=== PATIENT | male | born 1980 | race Hispanic/Latino ===

== ENCOUNTER 2019-12-13 11:02 | Observation (INO) | payer BC ==
[2019-12-13] MEDS ORDERED: Nitroglycerin 2% Ointment 1 INCH/1 GM Packet ONE (12:39)
[2019-12-13] MEDS ORDERED: Aspirin Chewable 81 MG TAB ONE (12:39)
[2019-12-13 12:44] LABS: #Basophils 0.1 thou/uL (0.0-0.2); #Eosinphils 0.1 thou/uL (0.0-0.7); #Lymphocytes 2.7 thou/uL (1.20-3.40); #Monocytes 1.1 thou/uL (0.11-0.59); #Neutrophils 5.9 thou/uL (1.40-6.50); %Basophils 0.9 % (0.0-1.0); %Eosinophils 0.6 % (0.0-10.0); %Lymphocytes 27.3 % (21.0-51.0); %Monocytes 10.9 % (0.0-10.0); %Neutrophils 60.4 % (42.0-75.0); Hemoglobin 16.1 g/dL (14.0-18.0); Mean Corpuscular HGB CONC 34.9 g/dL (32.0-36.0); Mean Corpuscular Hemoglobin 30.9 pg (27.0-31.0); Mean Corpuscular Volume 88.6 fL (78.0-98.0); Mean Platelet Volume 7.7 fL (7.4-10.4); Platelet Count 195 thou/uL (130-400); RBC Distribution Width 11.9 % (11.5-14.5); Red Blood Cell (RBC) Count 5.19 mill/uL (4.70-6.10); White Blood Cell (WBC) Count 9.7 thou/uL (4.8-10.8)
--- NOTE | 2019-12-13 12:59 | RAD ---
EXAM: Single view of the chest HISTORY: Shortness of breath COMPARISON: None FINDINGS: Single view of the chest shows a normal sized cardiomediastinal silhouette. There is no chris dence of consolidation, mass, or pleural effusion. The bones are unremarkable. IMPRESSION: No evidence of acute cardiopulmonary disease
[2019-12-13 13:05] LABS: ALT (SGPT) 63 U/L (8-55); AST (SGOT) 34 U/L (5-34); Albumin 4.4 g/dL (3.5-5.0); Alkaline Phosphatase 62 U/L (40-110); Anion Gap 11 mmol/L (10-20); BUN (Urea Nitrogen) 19 mg/dL (8.9-20.6); Bilirubin, Total 0.2 mg/dL (0.2-1.2); Calc. Creatinine Clearance 0 mL/min (70-130); Calcium 9.4 mg/dL (7.8-10.44); Carbon Dioxide 23 mmol/L (22-29); Chloride 110 mmol/L (98-107); Estimated GFR-MDRD Greater than 90; Globulin 3.1 g/dL (2.4-3.5); Glucose 117 mg/dL (70-105); Potassium 3.9 mmol/L (3.5-5.1); Protein, Total 7.5 g/dL (6.0-8.3); Sodium 140 mmol/L (136-145)
[2019-12-13 17:00] VITALS: BMI 34.3
[2019-12-13] MEDS ORDERED: Ondansetron ODT 4 MG TAB SL PRN (17:18)
[2019-12-13] MEDS ORDERED: Ondansetron PF 4 MG/2 ML Vial IVP PRN ×2 (17:18→18:17)
[2019-12-13] MEDS ORDERED: Acetaminophen 325 MG TAB PO PRN (17:18)
[2019-12-13 17:24] LABS: Troponin I 0.024 ng/mL (< 0.028)
[2019-12-13] MEDS ORDERED: hydrALAZINE 20 MG/ML VIAL SLOW IVP PRN (18:17)
[2019-12-13] MEDS ORDERED: Ondansetron ODT 4 MG TAB PO PRN (18:17)
[2019-12-13] MEDS ORDERED: Acetaminophen 500 MG TAB PO PRN (18:17)
[2019-12-13] MEDS ORDERED: Nitroglycerin 0.4 MG TAB (25 Tab Bottle) PO PRN (18:17)
[2019-12-13 19:56] LABS: Troponin I 0.026 ng/mL (< 0.028)
[2019-12-13] MEDS: Famotidine 20 MG TAB PO SCH (21:04)
--- NOTE | 2019-12-14 00:38 | HP ---
PRIMARY CARE PROVIDER: Lucas Huggins MD CHIEF COMPLAINT: Chest pain. HISTORY OF PRESENT ILLNESS: This is a 39-year-old male, who presents to [facility] Emergency Department complaining of 1 to 2 day history of central chest pressure and pain with some radiation to the left upper extremity. 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 The patient rested and eventually the pain and tightness subsided. 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 The patient took deep breaths and changed his position without relief of symptoms. The patient became concerned, seeking medical attention in the emergency room. The patient does admit to history of palpitations in the past, wearing a Holter monitor for approximately 30 days without specific findings. The patient denied any recent trauma injury, increased activity level, cough, congestion, fever, or family members with similar symptoms. The patient denied any recent surgical interventions or new medication exposure. The patient does admit to history of gastroesophageal reflux, taking intermittent Nexium. In the emergency room, the patient underwent general evaluation including chest imaging showing no acute infiltrate. Troponin I was negative x2. However, EKG did show ST-T wave changes in the precordial leads. The patient received transdermal nitroglycerin in addition to aspirin 324mg and 1 L normal saline. The patient was referred to the Hospitalist Service for evaluation. PAST MEDICAL HISTORY: 1. Palpitations without specific diagnosis. 2. Gastroesophageal reflux treated with Nexium. PAST SURGICAL HISTORY: Status post vasectomy. CURRENT MEDICATIONS: Reviewed and negative. ALLERGIES: NO KNOWN DRUG ALLERGIES. FAMILY HISTORY: No inheritable diseases per patient report. SOCIAL HISTORY: The patient is . Resides in the [place], [place] area. Works as a rancher. Smokes occasionally with occasional alcohol use. No illicit drug use. Functional of all activities of daily living. REVIEW OF SYSTEMS: CONSTITUTIONAL: Negative for weight loss or gain, ability to conduct usual activities. SKIN: Negative for rash, itching. EYES: Negative for double vision, pain. ENT/MOUTH: Negative for nose bleeding, neck stiffness, pain, tenderness. CARDIOVASCULAR: Negative for palpitations, dyspnea on exertion, orthopnea. RESPIRATORY: Negative for shortness of breath, wheezing, cough, hemoptysis, fever or night sweats. GASTROINTESTINAL: Negative for poor appetite, abdominal pain, heartburn, nausea , vomiting, constipation, or diarrhea. GENITOURINARY: Negative for urgency, frequency, dysuria, nocturia. MUSCULOSKELETAL: Negative for pain, swelling. NEUROLOGIC/PSYCHIATRIC: Negative for anxiety, depression. ALLERGY/IMMUNOLOGIC: Negative for skin rash, bleeding tendency. Otherwise negative except as stated per HPI. PHYSICAL EXAMINATION: VITAL SIGNS: On admission, blood pressure 121/63, pulse 72, respiratory rate 16 , temperature 97.9 degrees Fahrenheit, O2 saturation 98% on room air. GENERAL APPEARANCE: This is a 39-year-old male, alert and oriented x3, pleasant , conversant, in no acute distress. HEENT: Pupils are equal, round, reactive to light and accommodation. Extraocular muscles are intact. No scleral icterus. No conjunctival injection. Nares patent. OP is clear. Teeth in good repair. NECK: Supple. No cervical adenopathy. No thyromegaly. No carotid bruits. No JVD appreciated. Cervical spine with full active and passive range of motion. No meningeal signs noted. CHEST: Lungs are clear to auscultation bilaterally. CARDIOVASCULAR: S1, S2 without noted murmur, rub, or gallop. ABDOMEN: Rounded, soft, nontender, and nondistended. Bowel sounds are positive in all 4 quadrants. There is no hepatosplenomegaly. No abdominal bruits. No rebound or guarding appreciated. EXTREMITIES: Warm and dry with fair turgor. No clubbing, cyanosis, or asymmetric edema appreciated. Pulses palpable distally at the dorsalis pedis, posterior tibial, and popliteal arteries bilaterally. Capillary refill less than 2 seconds. NEUROLOGIC: Cranial nerves 2 through 12 are grossly intact. No focal or lateralizing signs appreciated. PERTINENT LABORATORY AND X-RAY FINDINGS: Complete metabolic profile within normal limits. Troponin I negative x2. CBC within normal limits. Portable chest x- ray dated 12/13/2019, showed no acute cardiopulmonary process. EKG dated 2019 by my interpretation shows T-wave inversion in the precordial leads involving V3 through V5. ASSESSMENT AND PLAN: 1. Chest pain. The patient will be observed on the telemetry unit. We will proceed with exercise Cardiolite stress testing in the a.m. Complete troponin I evaluation. Check fasting lipid profile in the a.m. Continue aspirin 325 mg daily. 2. Tobacco use. We will offer smoking cessation resources prior to discharge. 3. Gastroesophageal reflux disease. Continue Pepcid 20 mg p.o. b.i.d. 4. Prophylaxis. SCDs while in bed. Pepcid 20 mg p.o. b.i.d. 5. Code status is full. Surrogate medical decision maker is the patient's spouse. Job ID: [id number] MTDD
[2019-12-14] MEDS ORDERED: Aspirin 325 mg Enteric Coated Tablet PO SCH (09:00)
--- NOTE | 2019-12-14 10:34 | NM ---
EXAM: CARDIAC SPECT HISTORY: Chest pain TECHNIQUE: A myocardial perfusion scan was performed using the single isotope 1 day protocol with ellis hnetium 99m sestamibi. [10 mCi] was injected intravenously for the rest exam followed by 30 mCi for the stress study. Exercise stress was monitored and interpreted by TONYA Sam FINDINGS: Homogeneous tracer distribution is seen in the myocardial segments on stress and rest image s without fixed or reversible defects. Gated SPECT LVEF: 67% Wall motion exam: Normal IMPRESSION: Normal myocardial perfusion scan
[2019-12-14 11:55] VITALS: BP 126/62; TEMP 97.1
[2019-12-14] MEDS: Famotidine 20 MG TAB PO SCH (12:48)
--- NOTE | 2019-12-14 16:18 | DIS ---
DATE OF ADMISSION: 12/13/2019 DATE OF DISCHARGE: 12/14/2019 DISCHARGE DIAGNOSES: 1. Chest pain, noncardiac, likely musculoskeletal. 2. Tobacco use. 3. Gastroesophageal reflux. CONSULTATIONS: None. PERTINENT LABORATORY AND X-RAY FINDINGS: Troponin I negative x3. Total cholesterol 181, triglycerides 154, HDL 36, and LDL 114. CBC within normal limits. Portable chest x-ray dated 12/13/2019, showed no acute cardiopulmonary process. Cardiolite stress test dated 12/14/2019, showed no evidence for reversible or fixed ischemia with calculated ejection fraction of 67%. HOSPITAL COURSE: The patient was observed on the telemetry unit after initially presenting with atypical chest pain. The patient underwent serial cardiac biomarkers, which were negative x3 proceeding to exercise Cardiolite stress testing showing no evidence for reversible or fixed ischemia with calculated ejection fraction of 67%. Telemetry monitoring showed sinus mechanism without evidence of acute arrhythmia or dysrhythmia and the patient remained clinically stable throughout the hospital course. Likely the patient's presentation in a combination of musculoskeletal etiology in conjunction with gastroesophageal reflux. The patient encouraged to take [id number] acid reduction medication on an as-needed basis. I have examined the patient at the time of discharge and discussed followup instructions. The patient overall clinically stable and ready for discharge on 12/14/2019. DISCHARGE MEDICATIONS: Nexium p.r.n. FOLLOWUP: The patient may follow up with his primary care provider, Dr. Lucas Huggins, as needed. CONDITION ON DISCHARGE: Stable. ACTIVITY: Ad-barbara. DIET: Regular. CODE STATUS: Full. DISPOSITION: To home on 12/14/2019. Job ID: [id number]
--- NOTE | 2019-12-17 14:25 | EKG ---
Test Reason : Blood Pressure : / mmHG Vent. Rate : 109 BPM Atrial Rate : 109 BPM P-R Int : 154 ms QRS Dur : 086 ms QT Int : 330 ms P-R-T Axes : 052 059 -03 degrees QTc Int : 444 ms Sinus tachycardia Possible Left atrial enlargement Abnormal ECG #2 Confirmed by ELAYNE SOLORZANO DO ([id number]), digital editor RONDA MCGRATH ([id number]) on 12/17/2019 2:24:36 PM Referred By: Confirmed By:ELAYNE SOLORZANO DO
--- NOTE | 2019-12-17 14:25 | EKG ---
Test Reason : Blood Pressure : / mmHG Vent. Rate : 090 BPM Atrial Rate : 090 BPM P-R Int : 152 ms QRS Dur : 086 ms QT Int : 334 ms P-R-T Axes : 046 044 006 degrees QTc Int : 408 ms Normal sinus rhythm T wave abnormality, consider anterior ischemia Abnormal ECG Confirmed by ELAYNE SOLORZANO DO ([id number]), fan mail editor RONDA MCGRATH ([id number]) on 12/17/2019 2:24:30 PM Referred By: Confirmed By:ELAYNE SOLORZANO DO
== END 2019-12-14 13:07 | disposition home or self-care (01) ==
LOC: ERS 11:02 → ERHOLD 14:08 → 2SW 16:56
PROVIDERS: ADMIT Family Medicine; ATTEND Emergency Medicine
DX: R07.89 Other chest pain (principal); F17.200 Nicotine dependence, unspecified, uncomplicated; K21.9 Gastro-esophageal reflux disease without esophagitis
CPT/HCPCS: 36415; 71045; 78452; 80053; 80061; 84484; 85025; 93005; 93017; 96360; 96361; A9500; G0378

== ENCOUNTER 2020-04-21 20:19 | Inpatient (IN) | payer BC ==
--- NOTE | 2020-04-21 21:10 | RAD ---
LEFT ANKLE TWO VIEWS: 04/21/20 HISTORY: Left ankle deformity. Displaced and somewhat foreshortened spiral fracture of the distal tibial diaphysis and metaphysis. There is soft tissue swelling. IMPRESSION: Displaced foreshortened spiral fracture distal tibial diaphysis/metaphysis. POS: RRE
--- NOTE | 2020-04-21 21:13 | RAD ---
EXAM: LEFT TIBIA AND FIBULA TWO VIEWS: 04/21/20 HISTORY: Displaced foreshortened spiral fracture distal tibial diaphysis/metaphysis region and proximal fibula r diaphysis which is slightly comminuted. IMPRESSION: Displaced malaligned foreshortened spiral fracture distal tibial diaphysis/metaphysis as well as a sl ightly comminuted spiral fracture proximal fibular diaphysis. POS: RRE
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
[2020-04-21] MEDS ORDERED: Fentanyl 100 MCG/2 ML VIAL ONE (21:22)
[2020-04-21 21:33] LABS: #Basophils 0.1 thou/uL (0.0-0.2); #Eosinphils 0.1 thou/uL (0.0-0.7); #Lymphocytes 1.9 thou/uL (1.20-3.40); #Monocytes 1.6 thou/uL (0.11-0.59); #Neutrophils 11.8 thou/uL (1.40-6.50); %Basophils 0.3 % (0.0-1.0); %Eosinophils 0.5 % (0.0-10.0); %Lymphocytes 12.1 % (21.0-51.0); %Monocytes 10.4 % (0.0-10.0); %Neutrophils 76.7 % (42.0-75.0); Hemoglobin 16.1 g/dL (14.0-18.0); Mean Corpuscular HGB CONC 33.6 g/dL (32.0-36.0); Mean Corpuscular Hemoglobin 31.1 pg (27.0-31.0); Mean Corpuscular Volume 92.6 fL (78.0-98.0); Mean Platelet Volume 7.5 fL (7.4-10.4); Platelet Count 207 thou/uL (130-400); RBC Distribution Width 11.8 % (11.5-14.5); Red Blood Cell (RBC) Count 5.19 mill/uL (4.70-6.10); White Blood Cell (WBC) Count 15.3 thou/uL (4.8-10.8)
[2020-04-21 21:40] LABS: INR-International Normal Ratio 0.9; PTT 26.1 SEC (22.9-36.1); Prothrombin Time 12.2 sec (12.0-14.7)
[2020-04-21 21:57] LABS: ALT (SGPT) 51 U/L (8-55); AST (SGOT) 31 U/L (5-34); Albumin 4.5 g/dL (3.5-5.0); Alkaline Phosphatase 56 U/L (40-110); Anion Gap 14 mmol/L (10-20); BUN (Urea Nitrogen) 18 mg/dL (8.9-20.6); Bilirubin, Total 0.4 mg/dL (0.2-1.2); Calc. Creatinine Clearance 0 mL/min (70-130); Calcium 9.5 mg/dL (7.8-10.44); Carbon Dioxide 21 mmol/L (22-29); Chloride 109 mmol/L (98-107); Estimated GFR-MDRD 80; Globulin 3.1 g/dL (2.4-3.5); Glucose 99 mg/dL (70-105); Potassium 3.6 mmol/L (3.5-5.1); Protein, Total 7.6 g/dL (6.0-8.3); Sodium 140 mmol/L (136-145)
[2020-04-21] MEDS ORDERED: Ketamine 50 MG/ML (10ML VIAL) ONE (22:00)
[2020-04-21] MEDS ORDERED: Dextrose 5% in Water 1,000 ML IV PRN (22:57)
[2020-04-21] MEDS ORDERED: Morphine 4 MG/ML VIAL SLOW IVP PRN (22:57)
[2020-04-21] MEDS ORDERED: Dextrose 50% Abboject 50 ML SYRINGE SLOW IVP PRN (22:57)
[2020-04-21] MEDS ORDERED: hydrALAZINE 20 MG/ML VIAL SLOW IVP PRN (22:57)
[2020-04-21] MEDS ORDERED: Ondansetron PF 4 MG/2 ML Vial IVP PRN (22:57)
[2020-04-21] MEDS ORDERED: Cyclobenzaprine 10 MG TAB PO PRN (23:03)
[2020-04-21] MEDS ORDERED: traMADol HCl 50 MG TAB PO PRN ×2 (23:03)
[2020-04-22] MEDS ORDERED: HYDROmorphone 0.5 MG/0.5 ML SYRINGE ONE ×2 (00:19→09:51)
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
[2020-04-22] MEDS ORDERED: Cyclobenzaprine 10 MG TAB PO PRN (01:54)
[2020-04-22] MEDS: Acetaminophen 500 MG TAB PO SCH ×6 (01:58→20:14)
[2020-04-22] MEDS: Sodium Chloride 0.9% 1,000 ML IV SCH ×4 (01:58→17:44)
[2020-04-22] MEDS ORDERED: Sodium Chloride 0.9% 1,000 ML IV SCH (02:00)
[2020-04-22] MEDS ORDERED: Dextrose 5% in Water 1,000 ML IV PRN (02:02)
[2020-04-22] MEDS ORDERED: Dextrose 50% Abboject 50 ML SYRINGE SLOW IVP PRN (02:02)
[2020-04-22] MEDS ORDERED: hydrALAZINE 20 MG/ML VIAL SLOW IVP PRN (02:03)
[2020-04-22] MEDS ORDERED: Ondansetron PF 4 MG/2 ML Vial IVP PRN ×2 (02:03→12:40)
[2020-04-22] MEDS ORDERED: Morphine 4 MG/ML VIAL SLOW IVP PRN (02:03)
[2020-04-22] MEDS ORDERED: traMADol HCl 50 MG TAB PO PRN ×6 (02:04→20:52)
[2020-04-22 02:25] VITALS: BMI 36.5
[2020-04-22] MEDS ORDERED: Ibuprofen 600 MG TAB PO SCH ×2 (06:00)
--- NOTE | 2020-04-22 06:37 | RAD ---
LEFT TIBIA AND FIBULA TWO VIEWS: HISTORY: Post reduction. COMPARISON: Radiograph from the same day. FINDINGS: There is mildly improved alignment of the mid/distal tibial spiral fracture as well as of the proxima l fibular spiral fracture. IMPRESSION: Mildly improved fibular and tibial alignment, post reduction. POS: HOME
[2020-04-22] MEDS: Polyethylene Glycol 3350 17 GM Packet PO SCH (08:53)
[2020-04-22] MEDS ORDERED: Famotidine/PF 20 mg/2ml Vial SLOW IVP SCH ×2 (09:00)
[2020-04-22] MEDS ORDERED: Polyethylene Glycol 3350 17 GM Packet PO SCH (09:00)
[2020-04-22] MEDS ORDERED: Senokot S 8.6-50 MG TAB PO SCH ×2 (09:00)
[2020-04-22] MEDS ORDERED: Midazolam HCl 2 mg/2 ml Vial ONE (09:38)
[2020-04-22] MEDS ORDERED: Fentanyl 100 MCG/2 ML VIAL ONE ×2 (09:51→14:24)
[2020-04-22] MEDS ORDERED: Fentanyl 100 MCG/2 ML VIAL SLOW IVP PRN (12:40)
[2020-04-22] MEDS ORDERED: Fleet Enema 133 ML BOT PR PRN (12:40)
[2020-04-22] MEDS ORDERED: Cepastat Lozenges 1 LOZ PO PRN (12:40)
[2020-04-22] MEDS ORDERED: Milk Of Magnesia 30 ML UDCUP PO PRN (12:40)
[2020-04-22] MEDS ORDERED: Bisacodyl 10 MG SUPP PR PRN (12:40)
[2020-04-22] MEDS ORDERED: Acetaminophen 325 MG TAB PO PRN (12:40)
[2020-04-22] MEDS ORDERED: Ondansetron ODT 4 MG TAB PO PRN (12:40)
[2020-04-22] MEDS ORDERED: Promethazine HCl 25 MG/ML VIAL IM PRN (13:49)
[2020-04-22] MEDS ORDERED: Promethazine HCl 25 MG/ML VIAL SLOW IVP PRN (13:49)
[2020-04-22] MEDS ORDERED: HYDROmorphone 2 MG/ML VIAL SLOW IVP PRN (13:49)
[2020-04-22] MEDS ORDERED: Ondansetron HCl/PF 4 MG/2 ML Vial IVP PRN (13:49)
[2020-04-22] MEDS ORDERED: PACU-Morphine 4MG/ML VIAL SLOW IVP PRN (13:49)
[2020-04-22] MEDS ORDERED: Bupivacaine 0.25% HCL 30 ML VIAL ONE (13:54)
--- NOTE | 2020-04-22 15:06 | RAD ---
EXAM LEFT TIBIA AND FIBULA TWO VIEWS: History: Status post ORIF. FINDINGS: Intramedullary linda placed in the tibia stabilizing the displaced spiral fracture of the distal tibial diaphysis and metaphysis with improved position and alignment. Essentially nondisplaced spiral fract ure proximal fibula. IMPRESSION: Intramedullary linda stabilizing the tibia with improved position and alignment of the distal diaphysis /metaphysis fracture. Spiral fracture proximal fibular diaphysis. POS: [facility]
[2020-04-22] MEDS ORDERED: Ketorolac Tromethamine 30 MG/ML VIAL ONE (15:15)
[2020-04-22] MEDS ORDERED: PROPOFOL 200 MG/20 ML VIAL ONE (15:15)
[2020-04-22] MEDS ORDERED: Rocuronium Bromide 10 MG/ML (10ML VIAL) ONE (15:15)
[2020-04-22] MEDS ORDERED: Glycopyrrolate 0.2 MG/ML 5 ML SYRINGE ONE (15:15)
[2020-04-22] MEDS ORDERED: Lidocaine 1% PF 5 ML VIAL ONE (15:15)
[2020-04-22] MEDS ORDERED: Dexamethasone 20 MG/5 ML VIAL ONE (15:15)
[2020-04-22] MEDS ORDERED: Ondansetron PF 4 MG/2 ML Vial ONE (15:15)
[2020-04-22] MEDS: CEFAZOLIN 2 GM in Premix Bag 1 BAG IVPB SCH (17:40)
[2020-04-22] MEDS: Ketorolac Tromethamine 30 MG/ML VIAL IVP SCH (17:40)
[2020-04-22] MEDS: Senokot S 8.6-50 MG TAB PO SCH (20:15)
--- NOTE | 2020-04-22 20:52 | OP ---
DATE OF PROCEDURE: 04/22/2020 PREOPERATIVE DIAGNOSIS: Segmental spiral fracture of the left distal tibia with fracture of the proximal left fibula. POSTOPERATIVE DIAGNOSIS: Segmental spiral fracture of the left distal tibia with fracture of the proximal left fibula. PROCEDURE PERFORMED: Interlocking intramedullary rodding of the left tibia. ANESTHESIA: General. DESCRIPTION OF PROCEDURE: The patient was given preoperative IV antibiotics, taken to the operating room, placed in supine position. Satisfactory general anesthesia was performed. The left lower extremity was sterilely prepped and draped in usual fashion. After exsanguination, tourniquet at the left proximal thigh was raised to 300 mmHg. A longitudinal incision was made just medial to the patella and down to the anterior medial aspect of the tibia. The anterior aspect of the tibia just medial to the patellar tendon was opened and under fluoroscopic visualization, a guidewire was placed into the proximal tibia. It was then over-reamed and then a reaming guide linda was placed into the proximal tibia crossing the fracture into the distal aspect of the tibia. Appropriate size length of the nail was measured at 375 mm. The tibia was then reamed up to 11.5 mm, and a Synthes tibial nail was inserted that was 10 mm in diameter and 375 mm in length. A 5 mm locking screw was placed obliquely through the proximal tibia and proximal aspect of the linda, and a 5 mm locking screw was placed from anterior to posterior in the distal aspect of the tibia and the distal aspect of the linda. This provided good stability of the tibia with good alignment of the tibia and the fibula. The wounds were then irrigated with normal saline, and the proximal wound was closed using Vicryl, and skin was closed with skin dayna. A total of 20 mL of 0.25% Marcaine was used in the wounds to provide some postoperative analgesia. Sterile dressing was applied. Tourniquet was released. The patient was placed in a tall boot. The patient was then awakened, extubated, and transferred to recovery room in stable condition. ESTIMATED BLOOD LOSS: Minimal. COMPLICATIONS: None. TOURNIQUET TIME: 40 minutes. Job ID: [id number]
[2020-04-22] MEDS ORDERED: Escitalopram Oxalate 10 mg Tablet PO SCH (21:00)
[2020-04-23] MEDS: CEFAZOLIN 2 GM in Premix Bag 1 BAG IVPB SCH (00:59)
[2020-04-23] MEDS: Ketorolac Tromethamine 30 MG/ML VIAL IVP SCH ×2 (00:59→05:07)
[2020-04-23] MEDS: Acetaminophen 500 MG TAB PO SCH ×2 (00:59→08:49)
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
[2020-04-23 05:10] LABS: #Lymphocytes 1.5 thou/uL (1.20-3.40); #Monocytes 1.2 thou/uL (0.11-0.59); #Neutrophils 11.6 thou/uL (1.40-6.50); %Basophils 0.1 % (0.0-1.0); %Eosinophils 0.1 % (0.0-10.0); %Lymphocytes 10.2 % (21.0-51.0); %Monocytes 8.1 % (0.0-10.0); %Neutrophils 81.4 % (42.0-75.0); Hemoglobin 14.4 g/dL (14.0-18.0); Mean Corpuscular HGB CONC 33.2 g/dL (32.0-36.0); Mean Corpuscular Hemoglobin 31.2 pg (27.0-31.0); Mean Platelet Volume 7.1 fL (7.4-10.4); Platelet Count 184 thou/uL (130-400); RBC Distribution Width 11.8 % (11.5-14.5); Red Blood Cell (RBC) Count 4.62 mill/uL (4.70-6.10); White Blood Cell (WBC) Count 14.3 thou/uL (4.8-10.8)
[2020-04-23 05:24] LABS: Anion Gap 13 mmol/L (10-20); BUN (Urea Nitrogen) 10 mg/dL (8.9-20.6); Calc. Creatinine Clearance 165 mL/min (70-130); Calcium 9.2 mg/dL (7.8-10.44); Carbon Dioxide 27 mmol/L (22-29); Chloride 106 mmol/L (98-107); Estimated GFR-MDRD 86; Glucose 152 mg/dL (70-105); Magnesium 2.2 mg/dL (1.6-2.6); Phosphorus 3.6 mg/dL (2.3-4.7); Potassium 4.7 mmol/L (3.5-5.1); Sodium 141 mmol/L (136-145)
[2020-04-23 07:36] VITALS: BP 125/73; TEMP 97.7
[2020-04-23] MEDS: Polyethylene Glycol 3350 17 GM Packet PO SCH (08:45)
[2020-04-23] MEDS: Senokot S 8.6-50 MG TAB PO SCH (08:49)
== END 2020-04-23 12:45 | disposition home or self-care (01) | DRG 494 ==
LOC: ERS 20:19 → SURG A 04-22 00:38
PROVIDERS: ADMIT Surgery; ATTEND Surgery
PROC: 0QH Lower Bones, Insertion (ICD-10-PCS; principal; 2020-04-22)
DX: S82.392A Other fracture of lower end of left tibia, initial encounter for closed fracture (principal); V89.2XXA Person injured in unspecified motor-vehicle accident, traffic, initial encounter; F41.9 Anxiety disorder, unspecified; K21.9 Gastro-esophageal reflux disease without esophagitis; F17.210 Nicotine dependence, cigarettes, uncomplicated; Z79.899 Other long term (current) drug therapy
CPT/HCPCS: 27752; 27781; 36415; 70450; 71045; 72125; 76000; 80048; 80053; 80307; 83735; 84100; 85025; 85610; 85730; 86850; 86900; 86901; 93005; 96361; 96374; 96375; 99152; C1713; C1769; G0390; J0690; J1100; J1170; J1885; J2001; J2250; J2405; J2704; J3010; S0020

== ENCOUNTER 2020-11-21 22:41 | Emergency (ER) | payer BC ==
--- NOTE | 2020-11-22 07:59 | RAD ---
2 views of the left tibia/fibula: 11/22/2020 COMPARISON: 04/22/2020 HISTORY: Fall, trauma, pain FINDINGS: There is an intramedullary linda within the left tibia with a proximal and distal interlockin g screw. There is an obliquely oriented mildly displaced fracture of the proximal left fibula, as seen on the prior examination, demonstrating no significant interval change/callus formation. There is a distal tibial shaft fracture which is traversed by the postoperative hardware and demonstrates partial heali ng when compared to the prior exam. No new fracture is evident. IMPRESSION: Proximal left fibular fracture still demonstrates significant lucency when compared to th e prior exam. This could signify a refracture in this region or could signify a a lack of interval healing when compared to the 04/22/2020 exam. Stable appearance of the distal left tibial fracture status post ORIF.
== END 2020-11-22 01:36 | disposition home or self-care (01) ==
LOC: ERS 22:41
DX: S82.302K Unspecified fracture of lower end of left tibia, subsequent encounter for closed fracture with nonunion (principal); K21.9 Gastro-esophageal reflux disease without esophagitis; Z87.891 Personal history of nicotine dependence; Z79.899 Other long term (current) drug therapy; W01.10XA Fall on same level from slipping, tripping and stumbling with subsequent striking against unspecified object, initial encounter